=== PATIENT | male | born 1975 | race Caucasian/White ===

== ENCOUNTER 2021-04-29 15:11 | Emergency (ER) | payer BC, SELFPAY ==
--- NOTE | ~2021-04-29 | XR_ITS ---
EXAMINATION: XR SHOULDER, RIGHT CLINICAL INFORMATION: Pain COMPARISON: None TECHNIQUE: Four views of the right shoulder. FINDINGS: The acromioclavicular joint is slightly widened measuring 0.8 cm. There is a small well corticated soft tissue ossification that projects over the superior acromioclavicular joint. Findings are suggestive of old trauma. No acute fracture or dislocation is seen. The glenohumeral joint is normal. Soft tissues are otherwise normal XR/XR shoulder RT min 2V IMPRESSION: Probable old trauma to the right acromioclavicular joint.
[2021-04-29 15:33] VITALS: BP 137/77; PULSE 73; RESP 16; TEMP 36.6; O2SAT 97; BMI 33.9
--- NOTE | 2021-04-29 17:00 | ED.EXTPRO ---
HPI - Extremity Problem General Chief complaint: Extremity Problem Stated complaint: Shoulder pain Time Seen by Provider: 04/29/21 16:53 Related Data Previous Rx's Medication Instructions Recorded cyclobenzaprine 10 mg tablet 10 mg PO TID #20 tab 04/29/21 ibuprofen 800 mg tablet 800 mg PO Q8H #10 tab 04/29/21 Allergies Allergy/AdvReac Type Severity Reaction Status Date / Time No Known Allergies Allergy Unverified 04/29/21 17:01 PMFSH Past Medical History Medical History (Updated 04/29/21 @ 17:01 by Porter Stewart MD) ADHD Hypothyroid Surgical History (Updated 04/29/21 @ 15:35 by Philly Enamorado) H/O gastric bypass Social History Social History Advance Directives: No Advance Directives Information Provided: No Physical Exam Vital Signs: Vital Signs: Last Vital Signs Temp 97.9 F 04/29/21 15:33 Pulse 73 04/29/21 15:33 Resp 16 04/29/21 15:33 BP 137/77 04/29/21 15:33 Pulse Ox 97 04/29/21 15:33 Body Mass Index 33.9 Discharge Plan Discharge Clinical Impression: Bursitis Qualifiers: Bursitis location: shoulder Laterality: right Qualified Code(s): M75.51 - Bursitis of right shoulder Patient Disposition: Home, Self-Care Instructions: Shoulder Bursitis (ED) Additional Instructions: Follow-up with orthopedics if you can. If not see referral I am prescribing ibuprofen for the inflammation. Please discontinue immediately if you develop any abdominal discomfort as you have a history of gastric bypass surgery. It can irritate your stomach lining Prescriptions: New ibuprofen 800 mg tablet 800 mg PO Q8H Qty: 10 RF: 0 cyclobenzaprine 10 mg tablet 10 mg PO TID Qty: 20 RF: 0 Referrals: Claudette Nagel MD [Physician] - 2 days
--- NOTE | 2021-10-07 11:00 | ED.EXTPRO ---
HPI - Extremity Problem General Chief complaint: Extremity Problem Stated complaint: Shoulder pain Time Seen by Provider: 04/29/21 16:53 Source: patient History of Present Illness HPI Narrative: Patient with shoulder pain after lifting heavy object at work yesterday. No trauma. No weakness numbness or paresthesias. Worse with range of motion Related Data Previous Rx's Medication Instructions Recorded cyclobenzaprine 10 mg tablet 10 mg PO TID #20 tab 04/29/21 ibuprofen 800 mg tablet 800 mg PO Q8H #10 tab 04/29/21 Allergies Allergy/AdvReac Type Severity Reaction Status Date / Time No Known Allergies Allergy Unverified 04/29/21 17:01 Review of Systems Constitutional: Comments: No fevers Musculoskeletal: Comments: Shoulder pain Neurologic: Comments: No weakness numbness or paresthesias [facility] Past Medical History Medical History (Updated 04/30/21 @ 00:01 by Jeremi Ardon) ADHD Hypothyroid Surgical History (Updated 04/29/21 @ 15:35 by Philly Enamorado) H/O gastric bypass Social History Social History Advance Directives: No Advance Directives Information Provided: No Physical Exam Vital Signs: Vital Signs: Last Vital Signs Temp 97.9 F 04/29/21 15:33 Pulse 73 04/29/21 15:33 Resp 16 04/29/21 15:33 BP 137/77 04/29/21 15:33 Pulse Ox 97 04/29/21 15:33 BMI result Body Mass Index 33.9 Const: Other: Awake and alert in no acute distress Resp: Other: No respiratory distress Back/Spine/Pelvis: Other: Nontender Skin: Other: No rash Neuro: Other: No focal deficits Extrem: Other: Decreased range of motion secondary to discomfort. Distal circulation sensation motors intact Course Course Course Narrative: Shoulder injury Rotator cuff tear Calcific tendinosis X-ray shows old calcification over AC joint unlikely related to today's pain. Final diagnosis shoulder strain. Discharge Plan Discharge Clinical Impression: Bursitis Patient Disposition: Home, Self-Care Instructions: Shoulder Bursitis (ED) Additional Instructions: Follow-up with orthopedics if you can. If not see referral I am prescribing ibuprofen for the inflammation. Please discontinue immediately if you develop any abdominal discomfort as you have a history of gastric bypass surgery. It can irritate your stomach lining Prescriptions: New ibuprofen 800 mg tablet 800 mg PO Q8H Qty: 10 0RF Rx Instructions: Discontinue use if you develop any abdominal pain, especially with the history of gastric bypass surgery cyclobenzaprine 10 mg tablet 10 mg PO TID Qty: 20 0RF Referrals: Claudette Nagel MD [Physician] - 2 days Stand Alone Forms: Work/School Release Interventions: ED Discharge Assessment Last Done: 04/29/21 17:48 Discharge Date/Time: 04/29/21 17:49
== END 2021-04-29 17:49 | disposition home or self-care (01) ==
PROVIDERS: Emergency Provider Emergency Medicine; PCP Internal Medicine
DX: M75.51 Bursitis of right shoulder (principal)
CPT/HCPCS: 73030; 99283

== ENCOUNTER 2022-01-06 13:00 | Emergency (ER) | payer BC, SELFPAY ==
--- NOTE | ~2022-01-06 | XR_ITS ---
EXAMINATION: XR CHEST CLINICAL INFORMATION: Difficulty breathing. COMPARISON: Chest CTA dated 01/17/2021. TECHNIQUE: Frontal view of the chest was obtained. FINDINGS: No significant abnormality is noted involving the heart, lungs, mediastinum, bony thorax or soft tissues. XR/XR chest 1V IMPRESSION: No acute cardiopulmonary process.
[2022-01-06 13:03] VITALS: BP 132/86; PULSE 84; RESP 16; TEMP 36.8; O2SAT 97; BMI 35.2
--- NOTE | 2022-01-06 13:21 | ED.GENADULT ---
HPI - General Adult General Chief complaint: Upper Respiratory Symptoms Stated complaint: diff breathing Time Seen by Provider: 01/06/22 13:21 Source: patient Mode of arrival: ambulatory Limitations: no limitations History of Present Illness HPI narrative: Patient is a 46 year old male presenting to the emergency department today with difficulty breathing. Patient states that last week he was seen at urgent care for this and was given medications but it isn't getting better. Patient denies any dizziness, lightheadedness, abdominal pain, nausea, vomiting, fever, chills, blurry vision, double vision, loss of vision, chest pain, difficulty breathing, shortness of breath, back pain, night sweats, pain with urination, increased urinary frequency, increased urinary urgency, blood in his urine or stool, syncope or a near syncopal episode, recent trauma or falls, bowel incontinence, bladder incontinence, bowel retention, bladder retention, or any other complaints at this time. Onset (ago): week(s) (1) Severity: mild Severity scale (1-10): 3 Relieving factors: none Exacerbating factors: none Associated symptoms: shortness of breath Treatments prior to arrival: none Related Data Previous Rx's Medication Instructions Recorded cyclobenzaprine 10 mg tablet 10 mg PO TID #20 tabs 04/29/21 ibuprofen 800 mg tablet 800 mg PO Q8H #10 tabs 04/29/21 Allergies Allergy/AdvReac Type Severity Reaction Status Date / Time No Known Allergies Allergy Unverified 04/29/21 17:01 Review of Systems Constitutional: Constitutional: Reports no additional constitutional complaints, Denies chills, Denies fever(s) and Denies night sweats Eyes: Eyes: Reports no additional eye complaints, Denies blurry vision, Denies change in vision, Denies diplopia, Denies eye discharge, Denies loss of vision and Denies eye pain ENT: Denies dizziness Cardiovascular: Cardiovascular: Reports no additional cardiovascular complaints, Denies chest pain, Denies lightheadedness, Denies Loss of Consciousness and Reports dyspnea Respiratory: Respiratory: Reports no additional respiratory complaints and Reports dyspnea Gastrointestinal: Gastrointestinal: Reports no additional gastrointestinal complaints, Denies abdominal pain, Denies melena, Denies hematochezia, Denies change in bowel habits and Denies change in stool character Genitourinary: Genitourinary: Reports no additional male genitourinary complaints, Denies hematuria, Denies oliguria, Denies difficulty urinating, Denies dysuria, Denies urinary frequency, Denies urinary hesitancy, Denies urinary incontinence and Denies urinary urgency Musculoskeletal: Musculoskeletal: Reports no additional musculoskeletal complaints, Denies numbness and Denies tingling Neurologic: Denies dizziness, Denies loss of vision, Denies numbness and Denies tingling Psychiatric: Psychiatric: Reports no additional psychiatric complaints Endocrine: Endocrine: Reports no additional endocrine complaints Hematologic/Lymphatic: Hematologic/Lymphatic: Reports no additional hematologic/lymphatic complaints Allergic/Immunologic: Allergic/Immunologic: Reports no additional allergic/immunologic complaints [facility] Past Medical History Attestation statement: The following information was validated with the patient. Source: old records reviewed Medical History ADHD Hypothyroid Surgical History H/O gastric bypass Social History Social History Advance Directives: No Advance Directives Information Provided: No Physical Exam ED Vital Signs: Vital Signs - 24 hr 01/06/22 13:03 01/06/22 14:50 Temperature 98.3 F 98.2 F Pulse Rate 84 63 Respiratory Rate 16 16 Blood Pressure 132/86 131/78 Pulse Oximetry 97 96 Oxygen Delivery Method Room Air Room Air BMI result Body Mass Index 35.2 Const General: cooperative, no acute distress, alert and awake Nutritional Appearance: well nourished Orientation/consciousness: patient oriented x3 Limitations: no limitations [facility] Head: Yes normal to inspection and Yes atraumatic Ears: hearing grossly normal bilaterally and external ears normal General nose exam: Normal external nose present, no nasal discharge noted and no epistaxis Face and sinus: Yes normal facial exam, No abrasion and No laceration Mouth: Normal oral and palatal mucosa present, no drooling and no muffled voice Eyes General: appearance normal, both eyes and all related structures Periorbital: periorbital findings normal Eyelids: Yes eyelids normal Conjunctivae: conjunctivae normal Pupils: Equal, round and reactive pupils present EOM: EOMs intact bilaterally Neck Neck: Yes normal visual inspection, Yes full ROM and Yes no lymphadenopathy Chest Chest palpation & inspection: normal inspection of the chest Resp Effort & Inspection: normal respiratory effort and able to speak in complete sentences Auscultation: clear to auscultation bilaterally Cardio Rate: regular rate Rhythm: regular rhythm GI Inspection: Yes normal to inspection Neuro General: patient oriented x3 and moves all extremities Cranial nerves: Yes Equal, round and reactive pupils present Cognition (Neuro): normal cognition Motor exam (neuro): 5/5 motor strength present throughout Sensory Exam: Normal double simultaneous stimulation for sensation Coordination: [id number] test normal Extrem General: Yes normal to inspection, Yes full ROM and Yes capillary refill normal Psych Appearance: grossly normal Mental Status: mental status grossly normal Affect: normal affect Attitude: cooperative Thought process: Normal thought process present Thought content: Normal thought content present Insight: Good insight present (Psych) Medical Decision Making MDM Narrative Medical decision making narrative: Patient is a 46 year old male presenting to the emergency department today with difficulty breathing. Patient's physical exam was unremarkable. Patient's chest x-ray showed no acute process. Patient's respiratory panel came back positive for COVID-19. I explained my physical exam findings as well as all test results to the patient. I answered all questions asked by the patient. I stressed the importance of the patient taking his medication as prescribed. I stressed the importance of the patient following up with his primary care provider. I stressed the importance of the patient returning to the emergency department immediately if his symptoms were to worsen or if he were to develop any dizziness, shortness of breath, difficulty breathing, chest pain, blurry vision, loss of vision, nausea, vomiting, abdominal pain, fever, chills, back pain, or any other complaints. Patient verbalized agreement and understanding with this treatment plan and discharge. Differential Diagnosis Differential Diagnosis: COVID-19 Medical Records Medical records reviewed: Yes I reviewed the patient's medical records. Lab Data Labs: Lab Results 01/06/22 Range/Units 13:58 Respiratory Panel Ramos See Note Adenovirus (Rapid PCR) Not Detected (Not Detect.) B.pert (TEM-PCR) Not Detected (Not Detect.) B.parapertussis DNA PCR Not Detected (Not Detect.) C. pneumoniae DNA (PCR) Not Detected (Not Detect.) Coronavirus OC43 (PCR) Not Detected (Not Detect.) Coronavirus HKU1 (PCR) Not Detected (Not Detect.) Coronavirus 229E (PCR) Not Detected (Not Detect.) Coronavirus NL63 (PCR) Not Detected (Not Detect.) Human Metapneumovir PCR Not Detected (Not Detect.) Influenza A (RT-PCR) Not Detected (Not Detect.) Influenza B (RT-PCR) Not Detected (Not Detect.) M. pneumoniae (PCR) Not Detected (Not Detect.) Parainfluenza 1 (PCR) Not Detected (Not Detect.) Parainfluenza 2 (PCR) Not Detected (Not Detect.) Parainfluenza 3 (PCR) Not Detected (Not Detect.) Parainfluenza 4 (PCR) Not Detected (Not Detect.) RSV (PCR) Not Detected (Not Detect.) Entero/Rhino (PCR) Not Detected (Not Detect.) SARS-CoV-2 RNA (RT-PCR) Detected A (Not Detect.) Imaging Data Chest x-ray: Attestation: I personally reviewed and interpreted this imaging study as follows: My impression: No acute process. Radiologist's impression: EXAMINATION: XR CHEST CLINICAL INFORMATION: Difficulty breathing. COMPARISON: Chest CTA dated 01/17/2021. TECHNIQUE: Frontal view of the chest was obtained. FINDINGS: No significant abnormality is noted involving the heart, lungs, mediastinum, bony thorax or soft tissues. XR/XR chest 1V IMPRESSION: No acute cardiopulmonary process. Dictated By: Harpreet Tran MD Signed By: Electronically signed by Harpreet Tran MD 01/06/22 5246 Discharge Plan Discharge Clinical Impression: COVID-19 Patient Disposition: Home, Self-Care Instructions: COVID-19 (Coronavirus Disease 2019) (ED) Additional Instructions: Follow up with your primary care provider. Return to the emergency department immediately if your symptoms worsen or if you develop any dizziness, shortness of breath, difficulty breathing, chest pain, blurry vision, loss of vision, nausea, vomiting, abdominal pain, fever, chills, back pain, or any other complaints. Prescriptions: No Action ibuprofen 800 mg tablet 800 mg PO Q8H Qty: 10 0RF Rx Instructions: Discontinue use if you develop any abdominal pain, especially with the history of gastric bypass surgery cyclobenzaprine 10 mg tablet 10 mg PO TID Qty: 20 0RF Referrals: Dc García DO, MD [Primary Care Provider] - Print Language: Omani
[2022-01-06 14:50] VITALS: BP 131/78; PULSE 63; RESP 16; TEMP 36.8; O2SAT 96
[2022-01-06 15:19] LABS: Adenovirus PCR Not Detected (Not Detect.); Bordetella parapertussis PCR Not Detected (Not Detect.); Bordetella pertussis PCR Not Detected (Not Detect.); Chlamydia pneumoniae PCR Not Detected (Not Detect.); Coronavirus 229E PCR Not Detected (Not Detect.); Coronavirus HKU1 PCR Not Detected (Not Detect.); Coronavirus NL63 PCR Not Detected (Not Detect.); Coronavirus OC43 PCR Not Detected (Not Detect.); Human metapneumovirus PCR Not Detected (Not Detect.); Influenza A PCR Not Detected (Not Detect.); Influenza B PCR Not Detected (Not Detect.); Mycoplasma pneumoniae PCR Not Detected (Not Detect.); Parainfluenza 1 PCR Not Detected (Not Detect.); Parainfluenza 2 PCR Not Detected (Not Detect.); Parainfluenza 3 PCR Not Detected (Not Detect.); Parainfluenza 4 PCR Not Detected (Not Detect.); RSV PCR Not Detected (Not Detect.); Rhino/Enterovirus PCR Not Detected (Not Detect.); SARS-CoV-2 PCR Detected (Not Detect.)
== END 2022-01-06 15:57 | disposition home or self-care (01) ==
PROVIDERS: Physician Assistant Medical; Emergency Provider Emergency Medicine; PCP Internal Medicine
DX: U07.1 COVID-19 (principal); R06.02 Shortness of breath; Z79.899 Other long term (current) drug therapy
CPT/HCPCS: 71045; 87633; 99283

== ENCOUNTER 2023-03-17 10:04 | Outpatient (AMB) | payer BC, SELFPAY ==
--- NOTE | 2023-03-17 10:07 | MHC.OFFVIS ---
Intake Vital Signs 03/17/23 10:21 Height 6 ft Weight 285 lb 2 oz BMI 38.7 BP 120/84 Blood Pressure Location Rt brachial Position Sitting Pulse 56 Pulse Source Pulse Oximeter Pulse Oximetry (%) 98 Oxygen Delivery Method Room Air Intake Visit Reasons: ENP-Insomnia -Confirmed to [place] Location Intake Note: NPV for having trouble falling a slepp Wild Animal Caretaker Required: No Allergies No Known Allergies Allergy (Unverified 03/17/23 10:08) HPI HPI Comments History of Present Illness Details 47 y/o male patient presents for new in-person visit for sleep consultation. Pt reports difficulty falling asleep, but not staying sleep. Once he sleep, he will stay sleep throughout the night. He uses hydroxyzine 50 mg and melatonin 10 mg intermittently, and it usually helpful. Pt has a hx of sleep apnea when he was over 300 lb. He had gastric bypass surgery done in 2013 and had repeat sleep done in 2014. He was told that the test result was negative for sleep apnea. He feels refreshed when he has 6-7 hrs sleep. He is on buspirone 15 mg, 6 am and after lunch. He is also on Adderall 20 mg ER for attention deficit. 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 Sleep questionnaire: Have you ever been diagnosed with a sleep disorder? Yes, sleep Have you ever had a sleep study in the past? Have you ever been treated for a sleep disorder? Do you take medications for a sleep disorder? hydroxyzine 50 mg, it helps but still sometimes can't sleep. Do you snore? Not sure. Do you wake up gasping at night? No. Do you have episodes of apneas? No. If yes, are they witnessed? Sleeps alone. Do you have episodes of nocturnal chest pain or dyspnea? No. Do you have difficulty initiating sleep? Yes. Do you have difficulty maintaining sleep? No. Do you wake up tired? Yes, if he can't sleep enough Do you have headaches upon awakening? No. Do you wake up with dry mouth or throat? No. Do you have GERD? No. Do you have nocturia? No. Do you have nocturnal leg cramps? No. Do you have symptoms of restless legs? No. Do you act out your dreams? No. Sleep hygiene questionnaire: What is your usual sleep routine? Varies. Usual bedtime is at 10 pm; Usual wake up time is at . Do you take naps? No. Is your sleep environment cool, dark, and quiet? Yes. Do you exercise? No. Do you take caffeine or other stimulants? Yes. Do you use electronics in bed? Yes. What is your work schedule? 9 pm to 8 am. He works day shift temporarily. He worked plant operator/shift supervisor work but did not have issue Hypersomnolence questionnaire: Do you have daytime tiredness or fatigue? Yes. Do you easily fall asleep when inactive? No. Have you ever had episodes of sudden weakness? No. Have you ever had episodes of sudden weakness associated with strong emotions? No. PFSH Medical History (Updated 04/12/23 @ 15:57 by Abdi Dangelo CNP) Sleep apnea ADHD Hypothyroid Surgical History (Updated 03/17/23 @ 10:18 by Chuyita Leon CMA) H/O shoulder surgery H/O gastric bypass Family History (Updated 03/17/23 @ 10:20 by Chuyita Leon CMA) Father Diabetes Heart attack Mother COPD (chronic obstructive pulmonary disease) Asthma Social History (Updated 03/17/23 @ 10:21 by Chuyita Leon CMA) Alcohol intake: current Alcohol intake frequency: holidays/special occasions only Patient Tobacco Use Status: Never used Tobacco Review of Systems Const All systems reviewed & are unremarkable except as noted in HPI and below ENT Reports Normal hearing present Neuro Reports Normal hearing present Physical Exam Vital Signs: Last Vital Signs Pulse 56 03/17/23 10:21 BP 120/84 03/17/23 10:21 Pulse Ox 98 03/17/23 10:21 Oxygen Delivery Method Room Air 03/17/23 10:21 BMI result Body Mass Index 38.7 Const General: cooperative Nutritional Appearance: obese Orientation/consciousness: patient oriented x3 Neck Neck: Yes full ROM and Yes supple Neuro General: patient oriented x3, gait normal and no focal motor deficits Cranial nerves: Yes Bilaterally intact EOM present, Yes Normal facial strength present, Yes Midline tongue present, Yes Symmetric palate elevation present, Yes Normal hearing present, Yes Ability to bilaterally rotate head present and Yes Ability to bilaterally elevate shoulders present Cognition (Neuro): normal cognition Gait exam (Neuro): Normal gait present Motor exam (neuro): 5/5 motor strength present throughout, Pronator motor function not present and no tremor noted Psych Appearance: grossly normal Mental Status: mental status grossly normal Speech and movement: Normal speech and movement present Affect: normal affect Attitude: cooperative Assessment & Plan Assessment & Plan (1) Difficulty sleeping: Code(s): G47.9 - Sleep disorder, unspecified (2) 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 Advised patient to use Addrall and bupirone >8 hrs before bedtime. Advised patient to try to have routine sleep schedule. Advised patient to limit screen time before bedtime, bright light can cause low melatonin release naturally. Continue to take melatonin 10 mg nightly. Encouraged patient to read Say Good Night to Insomnia and practice the 6 weeks sleep hygiene program. Coding Level of Care Code New Pt Level 4 (12603) Diagnoses Difficulty sleeping G47.9 Shift work sleep disorder G47.26
[2023-03-17 10:21] VITALS: BP 120/84; PULSE 56; O2SAT 98; BMI 38.7
== END 2023-03-17 11:03 | disposition home or self-care (01) ==
PROVIDERS: PCP Internal Medicine; Visit Provider Nurse Practitioner Family
DX: G47.9 Sleep disorder, unspecified (principal); G47.26 Circadian rhythm sleep disorder, shift work type
CPT/HCPCS: 99204

== ENCOUNTER → 2023-03-17 10:04 | Outpatient (BNVA) | payer BC, SELFPAY | PROVIDERS: PCP Internal Medicine; Visit Provider Nurse Practitioner Family ==

== ENCOUNTER 2023-08-22 07:59 | Emergency (ER) | payer BC, SELFPAY ==
--- NOTE | ~2023-08-22 | XR_ITS ---
EXAMINATION: XR CHEST CLINICAL INFORMATION: Cough COMPARISON: Chest radiograph from 01/06/2022 TECHNIQUE: Frontal view of the chest was obtained. FINDINGS: Bilateral low lung volumes. Elevation the right hemidiaphragm. Slight bronchial thickening. Right basilar radiopacity which may reflect atelectasis versus evolving infectious/inflammatory etiology. No pneumothorax. Trachea is midline. Cardiac mediastinal silhouette is not enlarged. No large pleural effusion. Osseous structures are intact. Soft tissues are unremarkable. XR/XR chest 1V IMPRESSION: 1. Bilateral low lung volumes. 2. Elevation the right hemidiaphragm. 3. Slight bronchial thickening. 4. Right basilar radiopacity which may reflect atelectasis versus evolving infectious/inflammatory etiology.
[2023-08-22 08:07] VITALS: BP 116/86; PULSE 77; RESP 16; TEMP 36.6; O2SAT 97; BMI 40.5
[2023-08-22 08:34] LABS: COVID-19 Test Negative (Negative); IDNOW Serial# 08D9AD1C; IDNOW Serial# 152EDE1D; Influenza A Negative (Negative); Influenza B2 Negative (Negative)
--- NOTE | 2023-08-22 09:11 | ED_ITS ---
HPI - URI/Sore Throat General Chief Complaint: Upper Respiratory Symptoms Stated Complaint: congestion Time Seen by Provider: 08/22/23 09:08 Source: patient, RN notes reviewed and old records reviewed Mode of arrival: ambulatory History of Present Illness HPI Narrative: 48-year-old male with no significant past medical history presenting to the ED complaining of nasal congestion, rhinorrhea, myalgias, dry cough, SOB, chest discomfort with cough since yesterday. Admits was in contact with someone that was COVID-19. Denies recent travel, ear pain, sore throat, fever Related Data Home Medications Medication Instructions Recorded Confirmed buspirone 15 mg tablet 15 mg PO BID 03/17/23 dextroamphetamine-amphetamine ER 1 cap PO QAM 03/17/23 20 mg 24hr capsule,extend release (Adderall XR) hydroxyzine HCl 50 mg tablet 50 mg PO BEDTIME 03/17/23 levothyroxine 137 mcg tablet 137 mcg PO QAM 03/17/23 pantoprazole 40 mg tablet,delayed 40 mg PO DAILY 03/17/23 release sertraline 100 mg tablet 100 mg PO DAILY 03/17/23 Previous Rx's Medication Instructions Recorded ibuprofen 800 mg tablet 800 mg PO Q8H #10 tabs 04/29/21 azithromycin 250 mg tablet 250 mg PO DIRECTED #6 tabs 08/22/23 benzonatate 100 mg capsule 100 mg PO TID PRN cough #14 caps 08/22/23 fluticasone propionate 50 2 spray intranasal DAILY #16 grams 08/22/23 mcg/actuation nasal spray,suspension (Flonase Allergy Relief) Allergies Allergy/AdvReac Type Severity Reaction Status Date / Time No Known Allergies Allergy Verified 08/22/23 08:10 Review of Systems Review of Systems: Constitutional: No Fever, No Chills ENT/Mouth: No Ear Pain, + Nasal Congestion, No sore throat, + Rhinorrhea, No Swallowing Difficulty Cardiovascular: + Chest soreness w/cough, +SOB Respiratory: +Cough, No Sputum, No Wheezing Gastrointestinal: No Nausea, No Vomiting, No Diarrhea, No Constipation, No Abdominal pain Musculoskeletal: No joint pain, + Myalgias, No Joint Swelling Skin: No Skin Lesions, No rash Neuro: No Weakness, No Numbness, No Paresthesias Yes all other systems are reviewed and are negative Constitutional: Constitutional: Reports as per [facility] Past Medical History Attestation statement: The following information was validated with the patient. Source: old records reviewed Medical History Sleep apnea ADHD Hypothyroid Surgical History H/O shoulder surgery H/O gastric bypass Family History Family History Father Diabetes Heart attack Mother COPD (chronic obstructive pulmonary disease) Asthma Social History Social History Alcohol intake: current Alcohol intake frequency: holidays/special occasions only Patient Tobacco Use Status: Never used Tobacco Advance Directives: No Advance Directives Information Provided: No Physical Exam Vital Signs: Vital Signs: Last Vital Signs Temp 98 F 08/22/23 08:07 Pulse 66 08/22/23 09:30 Resp 12 08/22/23 09:30 BP 116/86 08/22/23 08:07 Pulse Ox 97 08/22/23 08:07 O2 Del Method Room Air 08/22/23 08:07 BMI result Body Mass Index 40.5 Const: General: cooperative, healthy appearing and no acute distress Orientation/consciousness: patient oriented x3 Limitations: no limitations HEENT: Head: Yes normal to inspection and Yes atraumatic Ears: hearing grossly normal bilaterally, external ears normal, TM's normal bilaterally and mastoids normal General nose exam: Normal external nose present Face and sinus: Yes normal facial exam Mouth: Normal oral and palatal mucosa present Throat: Yes posterior oropharynx normal, Yes tonsils normal, Yes uvula midline, No peritonsillar mass, No uvula laterally displaced and No uvular edema Eyes: General: appearance normal, both eyes and all related structures EOM: EOMs intact bilaterally Neck: Neck: Yes normal visual inspection and Yes no meningeal signs Resp: Effort & Inspection: normal respiratory effort, Actively coughing Quality: actively coughing, no respiratory distress and no stridor Auscultation: clear to auscultation bilaterally and no wheezes Cardio: Rate: regular rate Heart sounds: S1 normal heart sound present and S2 normal heart sound present Skin: Rashes: no rashes Wounds: no wounds Neuro: General: patient oriented x3, tone normal and no meningeal signs Cranial nerves: Yes CN's II-XII intact bilaterally Gait exam (Neuro): Normal gait present Extrem: General: Yes normal to inspection Course Course Course Narrative: --COVID & FLU negative XR chest 1V IMPRESSION: 1. Bilateral low lung volumes. 2. Elevation the right hemidiaphragm. 3. Slight bronchial thickening. 4. Right basilar radiopacity which may reflect atelectasis versus evolving infectious/inflammatory etiology. Results discussed with patient including worrisome signs and symptoms and strict return precautions, and when to return to the emergency department. They verbalized understanding and feel safe for discharge at this time. Medications Administered Discontinued Medications Generic Name Dose Route Start Last Admin Trade Name Freq PRN Reason Stop Dose Admin Albuterol Sulfate 2 puff 08/22/23 09:20 08/22/23 09:29 Albuterol Sulfate 90 Mcg 8 Gm Inhaler INHALE 08/22/23 09:21 2 puff ONCE ONE Administration Benzonatate 100 mg 08/22/23 09:18 08/22/23 09:55 Benzonatate 100 Mg Capsule PO 08/22/23 09:19 100 mg ONCE ONE Administration Hydrocodone Bit/Homatropine Methylb 5 ml 08/22/23 09:18 08/22/23 09:55 Hydrocodone/Homat 5/1.5/5 Ml 5 Ml Syrup PO 08/22/23 09:19 5 ml ONCE ONE Administration Medical Decision Making Medical Decision Making [facility] Narrative: 48-year-old male with no significant past medical history presenting to the ED complaining of nasal congestion, rhinorrhea, myalgias, dry cough, SOB, chest discomfort with cough since yesterday. On exam vital signs stable, NAD, nontoxic appearing, by cough appreciated, lungs CTA, oropharynx WNL. Concern for viral illness and bronchitis. Lower suspicion for pneumonia at this time. Low suspicion for ACS/PE, CHF Plan: Viral testing, CXR, p.o. Tessalon Oli, Hycodan, albuterol inhaler Please refer to course for remaining clinical decision making, interpretation of labs/imaging results, and discussions with consultants and/or family members. Differential Diagnosis Differential Diagnoses: The differential diagnosis associated with the presentation includes As above Lab Data [facility] Lab Attestation statement: I reviewed the patient's lab results. Labs: Lab Results 08/22/23 Range/Units 08:13 COVID-19 (MARYLOU) Negative (Negative) COVID-19 Clin Com See Note Influenza Type A (YENNY) Negative (Negative) Influenza Type B (YENNY) Negative (Negative) Influenza A & B Note See Note Independent Interpretation I performed an independent interpretation of an: EKG (My interpretation: EKG normal sinus rhythm rate of 60. QRS 104. QTC 388. No STEMI) and Plain X-Ray Radiology Impression Discussion of test interpretation with radiology: I have reviewed the radiologist's reading. External Record Review External record reviewed: Inpatient record, Office record, Outpatient record, Prior outpatient labs, Prior outpatient radiology, Primary care record and Outside ED record Tests considered The following testing was considered but not selected: As above Prescription Management I considered prescription management with: Antiviral and Antibiotic Discharge Plan Discharge Clinical Impression: Acute viral syndrome Patient Disposition: Home, Self-Care Instructions: Viral Syndrome (ED) Additional Instructions: You tested negative for COVID and flu. Her x-ray does show some thickening and possible early infectious vs inflammatory etiology Azithromycin as an antibiotic please take as prescribed Tesvineet Baird for cough Use albuterol inhaler for shortness of breath/wheezing Follow-up with your doctor If symptoms persist or worsen return to the ED Prescriptions: New fluticasone propionate [Flonase Allergy Relief] 50 mcg/actuation spray,suspension 2 spray intranasal DAILY Qty: 16 0RF Rx Instructions: administer into each nostril benzonatate 100 mg capsule 100 mg PO TID PRN (Reason: cough) Qty: 14 0RF azithromycin 250 mg tablet 250 mg PO DIRECTED Qty: 6 0RF Rx Instructions: 250 mg orally ;250 mg orally take 500 mg today (day 1), then 250 mg for 4 days (days 2-5) No Action ibuprofen 800 mg tablet 800 mg PO Q8H Qty: 10 0RF Rx Instructions: Discontinue use if you develop any abdominal pain, especially with the history of gastric bypass surgery dextroamphetamine-amphetamine [Adderall XR] 20 mg capsule,extended release 24hr 1 cap PO QAM buspirone 15 mg tablet 15 mg PO BID pantoprazole 40 mg tablet,delayed release (DR/EC) 40 mg PO DAILY hydroxyzine HCl 50 mg tablet 50 mg PO BEDTIME sertraline 100 mg tablet 100 mg PO DAILY levothyroxine 137 mcg tablet 137 mcg PO QAM Referrals: Dc García DO, MD [Primary Care Provider] - 5 days Stand Alone Forms: Work/School Release
[2023-08-22] MEDS: Albuterol Sulfate 90 MCG 8 GM INHALER 2 PUFF INHALE (09:29)
[2023-08-22 09:30] VITALS: PULSE 66; RESP 12
--- NOTE | 2023-08-22 09:51 | ECG_ITS ---
Test Reason : clearance Blood Pressure : / mmHG Vent. Rate : 060 BPM Atrial Rate : 060 BPM P-R Int : 138 ms QRS Dur : 104 ms QT Int : 388 ms P-R-T Axes : 046 023 025 degrees QTc Int : 388 ms Normal sinus rhythm Normal ECG No previous ECGs available Referred By: Suzy Foley Electronically Signed By:GUILLAUME HARDING MD
[2023-08-22] MEDS: HYDROcodone/Homat 5/1.5/5 ML 5 ML SYRUP PO (09:55)
[2023-08-22] MEDS: Benzonatate 100 MG CAPSULE PO (09:55)
== END 2023-08-22 10:06 | disposition home or self-care (01) ==
PROVIDERS: Emergency Provider Student in an Organized Health Care Education/Training Program; PCP Internal Medicine
DX: B34.9 Viral infection, unspecified (principal); R05.9 Cough, unspecified; Z11.52 Encounter for screening for COVID-19
CPT/HCPCS: 71045; 87502; 87635; 93005; 94640; 94664; 99284

== ENCOUNTER → 2023-08-22 09:51 | Outpatient (BNV) | payer BC, SELFPAY | PROVIDERS: Emergency Provider Student in an Organized Health Care Education/Training Program; PCP Internal Medicine; Visit Provider Internal Medicine Cardiovascular Disease | DX: R07.89 Other chest pain (principal) | CPT/HCPCS: 93010 ==